=== PATIENT | male | born 1960 | race American Indian/Alaskan Native ===

== ENCOUNTER 2017-02-20 12:27 | Emergency (ER) | payer MEDICAID ==
[2017-02-20 13:14] VITALS: BP 124/88
--- NOTE | 2017-02-20 15:17 | Emergency Department Report ---
ED Recheck HPI - General Chief Complaint: Extremity Injury, Lower Stated Complaint: LEG AND BACK PAIN, NEEDS PAIN MEDICATION Time Seen by Provider: 02/20/17 13:32 Source: patient, family Mode of arrival: Wheelchair Limitations: Physical Limitation - History of Present Illness Initial Comments: Patient here reports that he and his brother just moved from [place] and they were told to come to the emergency room for medication refill and for referral for primary care. Patient is on multiple medication which he presented a list to me for high blood pressure, high cholesterol congestive heart failure. He said he has a history of heart disease and had bypass surgery. 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 Patient said he is a diabetic but he get off his medication and now is controlled with his diet. Patient is reporting that he is having pain 8 out of 10 to his legs even though he does not have any leg and per his record patient was on Tylenol plain, oxycodone 15 mg 1 tablet every 8 hours. He was also on gabapentin. Multiple other medications include lisinopril, furosemide, aspirin, Blanco, Lipitor, Feosol, potassium chloride, senna. Patient denies any chest pain or shortness of breath. He said he and his brother stain with family and he is just here to get his medication restarted and to be referred to her primary care doctor. His only complaint is that he has pain and wants refill on his medication. Pain is aching and burning in he said his medication usually takes care of his pain but he ran out. Pain is at rest but not completely resolved. Patient is also a smoker. MD Complaint: medication refill request, other (achy and burning pain, 9 out of 10.) Initial Visit For: other (today is the initial visit for medication refill and pain management) Returns Today for: request for prescription Symptoms Since Prior Visit: no new symptoms (H and here for pain management and medication refill) Context: ran out of medication, other (a 9 out of 10 to legs which is phantom limb pain this patient has bilateral AKA) Associated Symptoms: none Treatments Prior to Arrival: other (since that he has Vicodin at home but he needs his oxycodone that he takes 3 times a day.) - Related Data Previous Rx's Medication Instructions Recorded Last Taken Type Aspirin [Aspirin TAB] 325 mg PO QDAY 30 Days #30 tablet 02/20/17 Unknown Rx Atorvastatin Calcium [Lipitor] 80 mg PO QHS 30 Days #30 tablet 02/20/17 Unknown Rx Bisacodyl [Dulcolax] 10 mg PO DAILY PRN 30 Days #30 tab 02/20/17 Unknown Rx Carvedilol [Coreg] 3.125 mg PO BID 30 Days #60 tablet 02/20/17 Unknown Rx Furosemide [Furosemide ORAL LIQ] 40 mg PO QDAY 30 Days #30 ml 02/20/17 Unknown Rx Gabapentin [Neurontin] 100 mg PO Q8HR 30 Days #90 capsule 02/20/17 Unknown Rx Iron,Carbonyl [Feosol] 45 mg PO QAM 30 Days #30 tablet 02/20/17 Unknown Rx Lisinopril [Zestril TAB] 2.5 mg PO QDAY 30 Days #30 tab 02/20/17 Unknown Rx Potassium Chloride 20 meq PO Q12H 30 Days #60 02/20/17 Unknown Rx tablet.er Sennosides [Senna] 8.6 mg PO QHS 30 Days #30 tablet 02/20/17 Unknown Rx traMADol [Ultram] 50 mg PO Q6HR PRN 3 Days #12 tablet 02/20/17 Unknown Rx Allergies Allergy/AdvReac Type Severity Reaction Status Date / Time No Known Allergies Allergy Unverified 02/20/17 13:14 ED Review of Systems ROS: Stated complaint: LEG AND BACK PAIN, NEEDS PAIN MEDICATION Other details as noted in HPI Comment: All other systems reviewed and negative Constitutional: no symptoms reported ENT: denies: ear pain, throat pain, congestion Respiratory: no symptoms reported Cardiovascular: denies: chest pain, palpitations, dyspnea on exertion, edema, syncope, paroxysmal nocturnal dyspnea Gastrointestinal: denies: abdominal pain, nausea, vomiting, diarrhea, constipation, hematemesis, melena, hematochezia Genitourinary: denies: urgency, dysuria, frequency, hematuria, discharge Skin: denies: rash Neurological: abnormal gait (patient wheelchair bound due to bilateral AKA), other (pain bilateral AKA). denies: headache, weakness ED Past Medical Hx - Past Medical History Previous Medical History?: Yes Hx Hypertension: Yes Hx Heart Attack/AMI: Yes (CAD with history of CABG) Hx Congestive Heart Failure: Yes Hx Diabetes: Yes (diet-controlled) Additional medical history: Chronic pain. Phantom limb pain. Neuropathy - Surgical History Past Surgical History?: Yes Additional Surgical History: CABG. Bilat AKA - Family History Family history: diabetes, hypertension - Social History Smoking Status: Current Every Day Smoker Substance Use Type: None - Medications Home Medications: Home Medications Medication Instructions Recorded Confirmed Last Taken Type Aspirin [Aspirin TAB] 325 mg PO QDAY 30 Days #30 tablet 02/20/17 Unknown Rx Atorvastatin Calcium [Lipitor] 80 mg PO QHS 30 Days #30 tablet 02/20/17 Unknown Rx Bisacodyl [Dulcolax] 10 mg PO DAILY PRN 30 Days #30 tab 02/20/17 Unknown Rx Carvedilol [Coreg] 3.125 mg PO BID 30 Days #60 tablet 02/20/17 Unknown Rx Furosemide [Furosemide ORAL LIQ] 40 mg PO QDAY 30 Days #30 ml 02/20/17 Unknown Rx Gabapentin [Neurontin] 100 mg PO Q8HR 30 Days #90 capsule 02/20/17 Unknown Rx Iron,Carbonyl [Feosol] 45 mg PO QAM 30 Days #30 tablet 02/20/17 Unknown Rx Lisinopril [Zestril TAB] 2.5 mg PO QDAY 30 Days #30 tab 02/20/17 Unknown Rx Potassium Chloride 20 meq PO Q12H 30 Days #60 02/20/17 Unknown Rx tablet.er Sennosides [Senna] 8.6 mg PO QHS 30 Days #30 tablet 02/20/17 Unknown Rx traMADol [Ultram] 50 mg PO Q6HR PRN 3 Days #12 tablet 02/20/17 Unknown Rx ED Physical Exam - General Limitations: Physical Limitation General appearance: alert, in no apparent distress - Head Head exam: Present: atraumatic, normocephalic, normal inspection - Eye Eye exam: Present: normal appearance, PERRL, EOMI Pupils: Present: normal accommodation - ENT ENT exam: Present: normal exam, normal orophraynx, mucous membranes moist, TM's normal bilaterally, normal external ear exam - Neck Neck exam: Present: normal inspection, full ROM, other (C-spine tenderness). Absent: tenderness, meningismus, lymphadenopathy - Respiratory Respiratory exam: Present: normal lung sounds bilaterally. Absent: respiratory distress, wheezes, rales, rhonchi, stridor, chest wall tenderness, accessory muscle use, decreased breath sounds, prolonged expiratory - Cardiovascular Cardiovascular Exam: Present: regular rate, normal rhythm, normal heart sounds. Absent: systolic murmur, diastolic murmur - GI/Abdominal GI/Abdominal exam: Present: soft, normal bowel sounds. Absent: distended, tenderness, guarding, rebound, rigid, mass, bruit, pulsatile mass, hernia - External exam: Present: erythema, swelling - Extremities Exam Extremities exam: Present: normal inspection, full ROM, normal capillary refill , other (patient with bilateral AKA. Stump is intact and healed. 2+ femoral pulses. 2+ pulses of her extremities. Clubbing cyanosis or edema.). Absent: tenderness, pedal edema, joint swelling - Back Exam Back exam: Present: normal inspection, full ROM. Absent: tenderness, CVA tenderness (R), CVA tenderness (L), muscle spasm, paraspinal tenderness, vertebral tenderness, rash noted - Neurological Exam Neurological exam: Present: alert, oriented X3, abnormal gait ( wheelchair bound due to bilateral AKA) - Psychiatric Psychiatric exam: Present: normal affect, normal mood - Skin Skin exam: Present: warm, dry, intact, normal color. Absent: rash ED Course Vital Signs 02/20/17 13:07 Temperature 98.4 F Pulse Rate 77 Respiratory 20 Rate Blood Pressure 124/88 O2 Sat by Pulse 99 Oximetry - Reevaluation(s) Reevaluation #1: 02/20/17 17:32 Patient was given regular [place]cott 5/325 2 tablets in emergency room to manage pain. Patient was seen by social services specialist and mental health and referral given for community services, prescription card for disc went on medication and we will refer patient to [facility]. ED Recheck MDM - Medical Decision Making ED Course: Patient here reports that he is here to get his medication refill and pain management and that he and his brother recently moved from [place] and he needs his medication for chronic medical problems refill. Patient said he has chronic pain and he takes oxycodone 3 times a day and takes Vicodin for breakthrough pain. He also has diabetes that is managed by diet, bilateral AKA , hypertension, hyperlipidemia and neuropathy. I spoke with Dr. Wheat regarding patient presentation and is requests for medication refill to include pain medication. He is okay with patient medication been refilled except for his medication for pain. Patient will be placed on Ultram and he will need to follow up with outside Medical Center to manage his chronic medical problems. Cristhian was seen by social services specialist and mental health. He was referred to [facility] and also some [facility]. Patient given Prescott 5/ 325 mg 2 tablets emergency room for pain and I discussed with him that I cannot refill medication for oxycodone he will need to get set up with primary care and be referred to pain specialist to manage his chronic pain. Patient discharged home in stable condition with prescription for lisinopril, furosemide , aspirin, Coreg, Lipitor, senna, Feosol, potassium chloride, gabapentin and bisacodyl and ultram. Vital signs are stable and he is afebrile. Critical care attestation.: If time is entered above; I have spent that time in minutes in the direct care of this critically ill patient, excluding procedure time. ED Disposition Clinical Impression: Encounter for medication refill, Phantom limb syndrome with pain, Nicotine abuse Disposition: - TO HOME OR SELFCARE Is pt being admited?: No Does the pt Need Aspirin: No Condition: Stable Instructions: Diabetes Mellitus Type 2 in Adults (ED), Chronic Hypertension (ED ), Hyperlipidemia (GEN), Chronic Pain (ED), How to Stop Smoking (ED), Heart Failure (ED), Coronary Artery Disease (ED) Additional Instructions: Please follow up with [facility] as discussed. Call tomorrow to schedule appointment. See referral given by social service for multiple community resources. Increase fluid intake. Stop Smoking Prescriptions: Atorvastatin Calcium [Lipitor] 80 mg PO QHS 30 Days #30 tablet Sennosides [Senna] 8.6 mg PO QHS 30 Days #30 tablet Aspirin [Aspirin TAB] 325 mg PO QDAY 30 Days #30 tablet Bisacodyl [Dulcolax] 10 mg PO DAILY PRN 30 Days #30 tab PRN Reason: Constipation Carvedilol [Coreg] 3.125 mg PO BID 30 Days #60 tablet Furosemide [Furosemide ORAL LIQ] 40 mg PO QDAY 30 Days #30 ml Gabapentin [Neurontin] 100 mg PO Q8HR 30 Days #90 capsule Iron,Carbonyl [Feosol] 45 mg PO QAM 30 Days #30 tablet Lisinopril [Zestril TAB] 2.5 mg PO QDAY 30 Days #30 tab Potassium Chloride 20 meq PO Q12H 30 Days #60 tablet.er traMADol [Ultram] 50 mg PO Q6HR PRN 3 Days #12 tablet PRN Reason: Pain Referrals: [facility] [Outside] - 02/21/17 Forms: Accompanied Note
[2017-02-20] MEDS ORDERED: NORCO 10/325 PO ONE (15:48)
== END 2017-02-20 18:17 | disposition home or self-care (01) ==
LOC: ED 12:27
DX: Z76.0 Encounter for issue of repeat prescription (principal); G54.6 Phantom limb syndrome with pain; I10 Essential (primary) hypertension; I25.2 Old myocardial infarction; I50.9 Heart failure, unspecified; E11.9 Type 2 diabetes mellitus without complications; G89.29 Other chronic pain; F17.200 Nicotine dependence, unspecified, uncomplicated; Z98.890 Other specified postprocedural states; Z79.82 Long term (current) use of aspirin
CPT/HCPCS: 99282